=== PATIENT | female | born 1965 | race American Indian/Alaskan Native ===

== ENCOUNTER 2024-03-31 10:14 | Emergency (ER) | payer OTHER, SELFPAY ==
--- NOTE | 2024-03-31 10:18 | W.ED.GENAD ---
Discharge Plan Disposition Patient Disposition: Home Discharge Details Clinical Impression: Acute pain of right knee Primary Care Provider: Unknown,Unknown ED Provider: Morales Mcrae Home Meds and New Rx's Prescriptions: No Action No Known Home Meds Discharge Instructions Additional Instructions: You were seen in the emergency department for your knee pain. Your x-ray showed no sign of any fractures. A referral has been placed for you to have a primary care provider. As we discussed if you develop fevers cannot move your foot or have any increasing pain in your right knee please return to the emergency department. Otherwise please follow-up with your primary care provider in the next week to 10 days. You may or may not benefit from an MRI based on reassessment by your primary care provider. You may use this knee immobilizer and bear weight as tolerated. Please rest your leg today and elevate it. For your pain please take medications as follows: 1. Take acetaminophen (Tylenol), 1,000 mg (two 500 mg tabs) every 6 hours [2. Take ibuprofen (Advil), 400 mg every 6 hours.] Discharge Data Discharge Date/Time-TO BE ENTERED AT DEPARTURE: 03/31/24 11:29 HPI General Date/Time Provider Initiated Documentation: 03/31/24 10:18. HPI Narrative: MDM This is an overall very well-appearing normothermic and not tachycardic 58-year-old female with right knee pain and history and physical most consistent with ligamentous injury for which patient will receive knee immobilizer weightbearing as tolerated with outpatient PCP follow-up. Patient recently relocated to the area and does not have a PCP. I have asked health natural gas treating unit operator to have the patient seen in the next week by her primary care provider. She has a warm well-perfused right lower extremity so I am not concerned for critical limb ischemia so do not feel the patient requires a CT angiogram with runoffs. No fevers nor significant effusion to suggest septic joint so no indication for arthrocentesis. No pain out of proportion to suggest necrotizing soft tissue infection. No erythema to suggest cellulitis. No fluctuance to suggest abscess. Patient is able to straight leg raise so not concern for quadriceps tendon injury. Calf tenderness to suggest Achilles tendon rupture so I did not perform a Caraballo test. In the absence of calf tenderness I was not concerned for DVT. Patient and I discussed that she should return to the ED if she developed worsening pain or any color changes in her foot. She understood her return indications and was discharged with knee immobilizer crutches and PCP follow-up. HPI This is a previously healthy 58-year-old female not on any home medications right in the emergency department via private vehicle in the setting of right knee pain. Patient was reportedly stepping backwards off of a box yesterday evening at approximately 5:30 PM. When she stepped down she had an immediate sense that something was abnormal in her right knee. This is associated with the pain. She has had no surgeries in the past her knee. She never had a PE nor DVT. She denies any fevers numbness and tingling in her foot. She has recently relocated to the area and lives in [place]. She does not yet have a primary care provider. Exam General: Well-appearing in no acute distress speaking in complete sentences. Head: Normocephalic, atraumatic. Eye: Extraocular eye movements intact. No conjunctival injection. No scleral icterus. Ear, nose, mouth, throat: Grossly normal inspection. Normal voice, handling secretions normally. Neck: Trachea midline. Cardiovascular: Well-perfused distal extremities. Respiratory: Nonlabored respiration. Gastrointestinal: Nondistended abdomen. Musculoskeletal: Right lower extremity no obvious signs of trauma. No erythema. No fluctuance. Right foot warm well-perfused 2+ PT and DP pulses. No tenderness throughout right quadriceps. Mild right lateral joint line tenderness on patient's knee. No significant laxity valgus nor varus stress testing. No obvious anterior nor posterior drawer test. Patient is able to straight leg raise. Full range of motion intact in right lower extremity across hip knee and ankle. Skin: Normal for age and race, grossly normal temperature and turgor. No acute rash. Neurologic: Alert and appropriate, no apparent acute deficits. GCS 15. Psychiatric: Mood and manner are appropriate. Grooming and personal hygiene are appropriate. Related Data Home Medications ?Medication ?Instructions ?Recorded ?Confirmed Unknown [No Known Home Meds] 03/31/24 03/31/24 Allergies Allergy/AdvReac Type Severity Reaction Status Date / Time No Known Allergies Allergy Verified 03/31/24 10:22 Medical Decision Making Quality:SDOH Health Related Social Needs: No Data to Display PFSH All Active Problems (Updated 03/31/24 @ 10:53 by Morales Mcrae MD) Acute pain of right knee (Acute) Social History Smoking/Tobacco Use Status: Never Smoking risk assessment performed?: Yes Alcohol Intake: never Drug use: Occasionally Substance use type: marijuana Housing: house Do you feel safe at home: No Do you feel safe in your relationship?: Yes
[2024-03-31 10:20] VITALS: BP 157/94; PULSE 70; RESP 20; TEMP 37; O2SAT 98
--- NOTE | 2024-03-31 10:42 | DI.RAD_ITS ---
Exam(s) XR KNEE RT 3V AP,LAT,JENNY EXAM: XR KNEE RT 3V AP,LAT,JENNY CLINICAL HISTORY: knee pain. TECHNIQUE: 2D digital imaging was performed of the right knee. Four views obtained. AP, lateral and PA tunnel views were obtained. COMPARISON: No exams were available for comparison FINDINGS: BONES: No acute fracture is present. No bony destructive lesion is seen. There are enthesophytes at t he anterior patella. JOINTS: The knee is normally aligned. No joint effusion is seen. SOFT TISSUE: Normal. IMPRESSION: No acute abnormality DATA REPOSITORY: RADIATION DOSE DELIVERED:
[2024-03-31 11:27] VITALS: BP 131/68; PULSE 67; RESP 16; O2SAT 98
--- NOTE | 2024-03-31 11:28 | DI.VRAD_ITS ---
PROCEDURE INFORMATION: Exam: XR Right Knee Exam date and time: 03/31/2024 10:37 AM Age: 58 years old Clinical indication: Pain; Knee; Right TECHNIQUE: Imaging protocol: Radiologic exam of the right knee. Views: 3 views. COMPARISON: No relevant prior studies available. FINDINGS: Bones/joints: No acute or suspicious osseous abnormalities. Small marginal osteophytes in the lateral compartment of the right knee joint, where the joint space is noted to be fairly well maintained. No joint effusion. Moderate bony projection noted at the quadriceps tendon insertion site on the upper pole of the patella. Small bony projection noted at the patellar ligament insertion site on the lower pole of the patella. Soft tissues: Normal. IMPRESSION: 1. No acute findings. 2. Early degenerative changes of the lateral compartment of the right knee. 3. Enthesopathy at the quadriceps tendon insertion site. 4. Enthesopathy at the patellar ligament insertion site on the patella. Dictated and Authenticated by: Kirsten Villanueva MD. Ordering:WOO Nielsen MD
== END 2024-03-31 11:29 | disposition home or self-care (01) ==
PROVIDERS: Emergency Provider Emergency Medicine
DX: M25.561 Pain in right knee (principal)
CPT/HCPCS: 73562; 99283

== ENCOUNTER 2024-07-03 12:51 | Outpatient (REF) | payer OTHER, SELFPAY ==
[2024-07-04 11:07] LABS: Measles IgG Antibody Positive (See Note)
== END 2024-07-03 12:52 | disposition home or self-care (01) ==
LOC: NCHCN 12:51
PROVIDERS: PCP Physician Assistant; Visit Provider Physician Assistant
DX: Z78.9 Other specified health status (principal)
CPT/HCPCS: 86765

== ENCOUNTER 2024-11-02 00:04 | Outpatient (CLI) | payer OTHER, SELFPAY ==
--- NOTE | 2024-11-02 06:45 | DI.MRI_ITS ---
Exam(s) MR LOWER EXTREMITY RT WO MR LOWER JOINT RT WO EXAM: MR LOWER JOINT RT WO CLINICAL HISTORY: right calf pain,[id number] after jumping injury. TECHNIQUE: Multiplanar multisequence MRI was performedof the left knee and left lower leg.. COMPARISON: CR,XR XR KNEE RT 3V AP,LAT,JENNY from 03/31/2024 MR MR LOWER EXTREMITY RT WO from 11/02/2024 FINDINGS: BONES: There is no fracture or contusion pattern. There is an enthesophyte at the quadriceps insertion on the patella. JOINTS: A small to moderate size joint effusion is present. Articular cartilage: Patellofemoral joint: Thinning of the cartilage at the patellar apex extending down to bone at the superior pole. Medial femoral tibial joint: Articular cartilage is unremarkable. Lateral femoral tibial joint: Articular cartilage is unremarkable. LIGAMENTS/TENDONS: Anterior Cruciate: Severe partial to full-thickness tear. Posterior Cruciate: Unremarkable. Medial Collateral:Unremarkable. Lateral Collateral ligament complex: Unremarkable. Extensor mechanism: Unremarkable. Medial retinaculum: Unremarkable. Lateral retinaculum: Unremarkable. Popliteus: Unremarkable. MENISCI: The medial meniscus is unremarkable. The lateral meniscus is unremarkable. MUSCLES: Unremarkable. No evidence of muscle strain in the lower leg. SOFT TISSUES: Minimal Greenfield's cyst. Mild anterior soft tissue edema. IMPRESSION: Severe partial to full-thickness tear of the anterior cruciate ligament. small to moderate-sized joint effusion. Chondromalacia at the patellar apex. Small Greenfield's cyst.. No abnormality seen in the lower leg. DATA REPOSITORY:
== END 2024-11-02 00:24 ==
LOC: DI 00:05
PROVIDERS: PCP Nurse Practitioner Family; Visit Provider Nurse Practitioner Family
DX: S83.511A Sprain of anterior cruciate ligament of right knee, initial encounter (principal); X58.XXXA Exposure to other specified factors, initial encounter
CPT/HCPCS: 73721; 73718

== ENCOUNTER 2024-11-12 17:01 | Outpatient (CLI) | payer OTHER, SELFPAY ==
[2024-11-12 17:11] LABS: HCT 41.1 % (36.0-46.0); HGB 13.5 g/dL (11.2-15.7); MCH 28.6 pg (27.0-33.0); MCHC 32.8 % (32.0-36.0); MCV 87 fL (80-95); MPV 11.7 fL (8.0-11.0); Platelet Count 238 10^3/uL (130-400); RBC 4.72 10^6/uL (3.93-5.22); RDW 11.9 % (11.7-14.6); RDW-SD 38.4 fL; WBC 8.58 10^3/uL (4.4-10.8)
[2024-11-12 17:31] LABS: Hemoglobin A1C 5.8 % (<5.7)
[2024-11-12 18:11] LABS: Iron 49 ug/dL (50-170); Total Iron Binding Capacity 275 ug/dL (250-450); Transferrin Sat 18 % (15-50)
[2024-11-12 18:34] LABS: ALT 26 U/L (14-59); AST 19 U/L (15-37); Albumin 4.1 g/dL (3.4-5.0); Alkaline Phosphatase 87 U/L (46-116); Anion Gap 8.2 mmol/L (3-11); BUN 18 mg/dL (7-18); Bilirubin, Total 0.5 mg/dL (0.2-1.0); CO2 29.8 mmol/L (21.0-32.0); Calcium 8.8 mg/dL (8.5-10.1); Chloride 104 mmol/L (98-107); Cholesterol 186 mg/dL (<200); Estimated GFR 85.35 (mL/min/1.73m2); Ferritin 71 ng/mL (8-252); Glucose 119 mg/dL (74-106); HDL Cholesterol 35 mg/dL (>or=50); Potassium 4.1 mmol/L (3.5-5.1); Sodium 142 mmol/L (136-145); TSH (W/Ref FT4) 2.07 uIU/mL (0.36-3.74); Total Protein 7.1 g/dL (6.4-8.2); Triglyceride 434 mg/dL (<150); Vitamin D 25 Total 47 ng/mL (30-100)
[2024-11-12 19:41] LABS: LDL CHOLESTEROL 102 mg/dL (<100)
== END 2024-11-12 17:02 | disposition home or self-care (01) ==
LOC: LBO 17:02
PROVIDERS: PCP Nurse Practitioner Family; Visit Provider Obstetrics & Gynecology
DX: R61 Generalized hyperhidrosis (principal); G47.00 Insomnia, unspecified; R53.83 Other fatigue; Z3A.28 28 weeks gestation of pregnancy; N93.9 Abnormal uterine and vaginal bleeding, unspecified; Z13.6 Encounter for screening for cardiovascular disorders; R23.2 Flushing; Z00.00 Encounter for general adult medical examination without abnormal findings
CPT/HCPCS: 36415; 80053; 80061; 82306; 83721; 85027; 82728; 83036; 83540; 83550; 84443

== ENCOUNTER 2024-12-18 10:17 | Outpatient (REF) | payer OTHER, SELFPAY | END 2024-12-18 10:18 | disposition home or self-care (01) | LOC: LBN 10:17 | PROVIDERS: PCP Nurse Practitioner Family; Visit Provider Obstetrics & Gynecology | DX: Z12.4 Encounter for screening for malignant neoplasm of cervix (principal) | CPT/HCPCS: 88142; 87624 ==

== ENCOUNTER 2024-12-28 07:45 | Day surgery (SDC) | payer OTHER, SELFPAY ==
[2024-12-28] VITALS (19 sets, daily range): BP systolic 100–139; BP diastolic 56–86; PULSE 49–70; RESP 11–19; TEMP 36.1–36.6; O2SAT 96–100; BMI 27.8
--- NOTE | 2024-12-28 07:13 | W.PM.DSUDISC ---
Date of service: 12/28/24 Discharge Plan Disposition Patient Disposition: Home Condition: Stable Discharge Details Attending Provider: Ace Wilkes Primary Care Provider: Radha Rojas Home Meds and New Rx's Prescriptions: New aspirin 81 mg tablet,delayed release (DR/EC) 81 mg PO DAILY 14 Days Qty: 14 0RF naproxen 250 mg tablet 250 - 500 mg PO BID PRN (Reason: Moderate pain) Qty: 40 0RF oxycodone 5 mg tablet 5 - 10 mg PO Q4H PRN (Reason: Moderate to severe pain) Qty: 18 0RF Continued zolpidem 5 mg tablet 5 mg PO QHS PRN (Reason: insomnia) valacyclovir 1 gram tablet 1,000 mg PO DAILY PRN (Reason: cold sores) albuterol sulfate 90 mcg/actuation HFA aerosol inhaler 2 puff inhalation Q6H PRN cholecalciferol (vitamin D3) 125 mcg (5,000 unit) capsule 125 mcg PO DAILY mecobalamin (vitamin B12) 1,000 mcg tablet,chewable 1,000 mcg PO DAILY quercetin 500 mg capsule PO thiamine HCl (vitamin B1) 100 mg capsule 100 mg PO DAILY Trace Mineral PO vitamin b5 500 mg PO paroxetine mesylate(menop.sym) 7.5 mg capsule 7.5 mg PO DAILY 30 Days Qty: 30 1RF Patient Comments: haven't started Discharge Instructions Additional Instructions: Surgery: Right knee arthroscopy with ACL reconstruction (quadriceps allograft), patellar chondroplasty, and partial medial & lateral meniscectomy 12/28/24 Activity: Weightbearing as tolerated. No brace or crutches needed as soon as comfortable and stable on knee. Restore full knee extension as soon as possible. Perform early quad sets/quadriceps isometrics. Gradually increase flexion to full. Recommend elevation to minimize swelling discomfort. Encourage ankle pumps and wiggle toes to improve circulation. A physical therapy prescription will be sent electronically to begin in 3 weeks. Avoid sports activities for about 9+ months. Prescriptions: Aspirin 81 mg take 1 daily to prevent a blood clot for 14 days Naproxen 250 mg take 1-2 every 12 hours with a meal as needed for moderate pain Oxycodone 5 mg take 1-2 every 4-6 hours as needed for severe pain You may use [id number] Tylenol (acetaminophen) as needed for mild pain. These pain medications may be taken all at once or in different combinations as needed. Also, recommend Colace (docusate) as a stool softener as surgery and pain medicine cause constipation. You may try [id number] diphenhydramine (Benadryl) 25-50 mg nightly as a sleep aid Dressings: Leave dressing in place for 3 days. May then remove and leave open to air or cover incisions with Band-Aids. Leave the sticky Steri-Strips in place until they fall off or remove them after you shower. May shower after 5 days. Follow-up: 10-[address] Wilkes You may take off the leg compression stockings this evening at home. You may also leave them on a few days longer if you have a history of leg swelling or edema. Let us know right away if you develop any redness, drainage, fevers, chest pain, or trouble breathing. Do not drink alcohol or drive for at least 24 hours after anesthesia. Please call the office during business hours with any questions or concerns. Stand Alone Forms: Anesthesia Discharge Inst., Anes.Nerve Block Instructions, Crutch Training Instructions, Kenia Baker (DSU) Referrals: Ace Wilkes MD [ [facility] STAFF PHYSICIAN, Orthopaedic Surgical] - 01/08/25 9:00 am Discharge Orders Discharge Orders: Discharge Order (Routine); Ordered 12/28/24 Ordered By: Jay Villalba DS: Diagnosis Discharge Diagnosis (1) Chondromalacia of patella, right: Status: Acute (2) Right ACL tear: Status: Acute (3) Degeneration of meniscus of right knee: Status: Acute
--- NOTE | 2024-12-28 07:26 | ROE_ITS ---
Operative Note Operative Note PRE-OP DIAGNOSIS: Right knee: 1. Subacute ACL rupture PROCEDURE: Right knee: 1. ACL reconstruction, CPT #06019: Quadriceps allograft 2. Partial medial & lateral meniscectomy, CPT #04451 3. Patellar chondroplasty, CPT #43519 SURGEON: Ace Wilkes DENTAL INSTRUMENT MAKER: Jay Villalba ANESTHESIA TYPE: Local By Surgeon, General LMA/ETT and Primary Nerve Block Refer to Anesthesia Record ESTIMATED BLOOD LOSS: 10 TOURNIQUET TIME: 0 COMPLICATIONS: None Patient was transported to: PACU Patient's condition: stable Implants: Arthrex ACL TightRope II RT and ABS with 11 mm round concave cortical button QuadLink pre-sutured quadriceps allograft: 10 x68 mm Indications: Please see complete medical record for details. Findings: Exam under anesthesia: Full range of motion, grossly positive Richardson, positive pivot glide, equivocal anterior drawer, stable varus and valgus. Negative posterior drawer. Arthroscopic findings: Moderate patellofemoral synovitis and undersurface patellar apex chondromalacia. Mild white zone degenerative medial meniscus body and posterior horn tearing. Similarly degenerative posterior horn lateral meniscus tearing. Both menisci had some fraying approaching the root but the roots were overall stable. Moderate medial compartment narrowing. Moderate to high grade mid to higher grade proximal ACL disruption with some intact mid to distal fibers scarred to the PCL as well. Moderate medial chondromalacia. Intact lateral compartment. Procedure Description: In the operating room, general anesthesia was induced. The patient was positioned supine on the operating room table. All bony prominences were well- padded. Preoperative antibiotics were administered. The knee was prepped and draped in the usual sterile fashion. The correct patient, procedure, and side of the procedure were all verified prior to incision. Exam under anesthesia was performed. Local anesthetic containing epinephrine was infiltrated about the planned anteromedial, anterolateral, lateral distal femoral, and pretibial surgery sites. The standard high and tight anterolateral and anteromedial portals were established and a complete diagnostic arthroscopy was performed with relevant findings detailed above. A passport cannula was i nserted in both the anteromedial and anterolateral portals. The shaver was used to remove abundant synovium engaging in the patellofemoral compartment followed by the torpedo shaver to trim and smoothed the some irregular unstable cartilage of the undersurface of the patella. The torpedo shaver was then used in both the medial and lateral compartments to trim the irregular meniscus tearing white zone edge of tearing and fraying to a more appropriate stable margin including the body posterior horn and nearing the root. In the intercondylar area, the ACL remnant was removed leaving enough dieter tprint on the femur and tibia to localize anatomic socket placement. A small notchplasty was performed to allow proper visualization of the back wall. The graft was measured and prepared on the back table. The TightRope II BTB and TightRope II ABS adjustable-loop cortical suspensory fixation implants were loaded on QuadLink pre-sutured quadriceps allograft. The femoral side measured 10 mm and the tibial side 9.5 mm.. The graft was marked at 20 mm from each end. On the ABS side, the tensioning sutures were marked and a shuttle suture was added. The graft was manually tensioned and the construct did not demonstrate any elongation. The graft was then compressed in a graft tube and covered with vancomycin soaked sponges. The femoral guide was then placed through the anterolateral portal carefully targeting the appropriate anatomic ACL origin. The outer 9 mm diameter of the guide was positioned anatomically with appropriate space between the proximal and posterior articular margins. On the lateral thigh, drill guide position and angle adjusted to about 60 degree angle to the longitudinal axis of the femur in the coronal plane and 20 degree angle to the trans-epicondylar axis in the axial plane to create the most optimal femoral socket. Knife and snap were used to open the skin and IT band and placed the drill guide on bone while maintaining appropriate position on the lateral wall. The tunnel length was noted to be used for marking and passing the femoral button. The flip cutter was then drilled to the appropriate location. The drill guide malleted 7 mm into the co rtex. The remainder of the targeting guide removed. The FlipCutter was deployed to 9.5 mm and retrograde reaming done to a depth of almost 30 mm. Bony debris was removed with the shaver. The flip cutter was then closed, withdrawn, and a FiberSnare used to pass a #2 FiberWire shuttle stitch, which was withdrawn out the anterolateral portal. The tibial guide was then used to target the anatomic ACL insertion through the anteromedial portal. The drill angle adjusted to 57.5 degrees and a pretibial incision made. The drill guide was placed on bone, tunnel length noted, and the flip cutter drilled to the appropriate location. The drill guide malleted 7 mm into the cortex. The remainder of the targeting guide removed. The FlipCutter was deployed to 10mm and retrograde reaming done to a depth of 35+ millimeter. Bony debris was removed with the shaver. The flip cutter was then closed, withdrawn, and a FiberSnare used to pass a #2 FiberWire shuttle stitch, which was withdrawn out the anteromedial portal. The mechanical shaver was used to remove bone debris as well as chamfer and remove soft tissue from the edges of the sockets. A femoral shuttle sutures were withdrawn out the anterior medial portal. The PassPort was removed. This portal dilated to accommodate the graft size. The graft was brought over to the knee and the femoral sutures shuttled out the lateral thigh and advanced until the button was near the far cortex. Under arthroscopic visualization with the knee slightly hyperflexed, and the button was then passed and flipped on the far cortex. Counter traction was then maintained on the tibial side of the graft while it was carefully advanced into the knee and then about 15 mm into the femoral socket. The tibial sutures were then shuttled through the tibial tunnel and passing stitch removed while carefully noting the tensioning stitches. The graft was then dunked about 15 mm into the tibial socket. 11 mm round concave ABS button was then loaded to the ABS loop and tension sutures used to bring the cortical button down to bone. The graft was advanced and then provisionally tensioned on both the femoral and tibial sides. The knee was then cycled 22 times, tensioning rechecked, and final tightening done with the knee in full extension with a moderate reverse Richardson maintained. The graft position and tension were appropriate. There was no impingement in full extension. Richardson exam was rock stable. Femoral passing sutures were removed. Backup knots were then tied on both sides and suture tails cut. The knee and all portals were copiously irrigated and then knee drained of arthroscopic fluid. 3-0 Monocryl was used to close the portals and small incisions in a buried interrupted fashion. Mastisol, Steri-Strips, Xeroform, 4 x 4 gauze, and sterile soft roll was applied. The extremity was wrapped gently with an Nathaniel bandage. A soft knee immobilizer placed. The patient awoke from anesthesia without complication and was transferred to the recovery room in a stable condition. Date of Procedure: 12/28/24
--- NOTE | 2024-12-28 08:29 | W.ANESPRE ---
General Info Date of Service Date Performed: 12/28/24 Height: 5 ft 5 in Weight: 75.8 kg Body Mass Index (BMI): 27.8 Surgical Procedure: Operation Date: 12/28/24 10:10 Proposed Procedure Side Surgeon p Knee ACL Reconstruction (Quadriceps Allograft) Right Ace Wilkes MD Actual Procedure Side Surgeon p Knee ACL Reconstruction (Quadriceps Allograft) Right Ace Wilkes MD Pre-Op Diagnosis Post-Op Diagnosis Right ACL tear Meds Allergies and Home Medications Allergies Allergy/AdvReac Type Severity Reaction Status Date / Time No Known Allergies Allergy Verified 12/28/24 08:23 Home Medication ?Medication ?Instructions ?Recorded Trace Mineral PO 10/09/24 albuterol sulfate 90 mcg/actuation 2 puff inhalation Q6H PRN 10/09/24 aerosol inhaler cholecalciferol (vitamin D3) 125 125 mcg PO DAILY 10/09/24 mcg (5,000 unit) capsule mecobalamin (vitamin B12) 1,000 1,000 mcg PO DAILY 10/09/24 mcg chewable tablet quercetin 500 mg capsule mg PO 10/09/24 thiamine HCl (vitamin B1) 100 mg 100 mg PO DAILY 10/09/24 capsule valacyclovir 1 gram tablet 1,000 mg PO DAILY PRN cold sores 10/09/24 vitamin b5 PO 10/09/24 zolpidem 5 mg tablet 5 mg PO QHS PRN insomnia 10/09/24 paroxetine mesylate(menop.sym) 7.5 7.5 mg PO DAILY 30 days #30 caps 12/18/24 mg capsule Current Visit Medications: Current Medications Generic Name Dose Route Start Last Admin Trade Name Danielle PRN Reason Stop Dose Admin Ringer's Solution 1,000 mls @ 30 mls/hr 12/28/24 06:00 IV 12/28/24 23:59 INFUSION CATE Cefazolin Sodium/Dextrose 2 gm in 50 mls @ 100 mls/hr 12/28/24 06:00 Ancef Duplex IVPB 12/28/24 23:59 PREOP CATE Tranexamic Acid/Sodium Chloride 1,000 mg in 100 mls @ 600 mls/hr 12/28/24 06:00 IVPB 12/28/24 23:59 PREOP CATE IV Miscellaneous Supplies 1 each 12/28/24 06:00 Iv Access IV 12/28/24 23:59 DIRECTED CATE Oxycodone HCl 0 mg 12/28/24 07:12 Oxycodone 5 Mg Tab PO 01/27/25 07:11 Q3H PRN PRN Pain Sodium Chloride 0 ml 12/28/24 06:00 Normal Saline Flush 10 Ml Syr IV 12/28/24 23:59 PRN PRN Sodium Chloride 0 ml 12/28/24 06:00 Normal Saline 10 Ml Vial IJ 12/28/24 23:59 DIRECTED PRN Sterile Water 0 ml 12/28/24 06:00 Water,Injection,Sterile 10 Ml Vial IJ 12/28/24 23:59 DIRECTED PRN PFSH Active Problems Active Problems: Problem Status Onset Code Menopause Acute Z78.0 Prediabetes Acute R73.03 Neuritis of left sural nerve Acute G57.82 Neuritis of left foot Acute G57.92 Contracture of left Achilles tendon Acute M67.02 Pain in left foot Acute M79.672 Interdigital neuroma of left foot Acute G57.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 of patella, right Acute M22.41 Right ACL tear Acute ~03/2024 S83.511A Preventative health care Acute Z00.00 Hot flashes Acute R23.2 Hamstring tendonitis Acute M76.899 Right calf pain Acute M79.661 Exercise-induced asthma Acute J45.990 Insomnia Acute G47.00 Medical History Medical History Hypothyroidism Right knee pain Elevated blood pressure reading without diagnosis of hypertension Low back pain Surgical History Surgical History History of cholecystectomy (2022) Tobacco Smoking/Tobacco Use Status: Never Alcohol Alcohol Intake: never Substance Use Substance use: Occasionally Substance use type: marijuana Details: THC used a few times a week. edibles for sleep. small edible in last 24 hours. Vital Signs and Lab Results Vital Signs Most Recent Vital Signs in EMR: Most Recent Vital Signs Temp Pulse Resp BP Pulse Ox 36.4 C L 62 16 137/73 100 12/28/24 08:19 12/28/24 08:19 12/28/24 08:19 12/28/24 08:19 12/28/24 08:19 Anesthesia Assessment and Plan Anesthesia History Personal History: No History of Anesthesia Complications Family History: No Family History of Anesthesia Complications Exercise Tolerance Exercise Tolerance: Metabolic Equivalents>4 Pertinent Negatives Pertinent Negatives: No Symptoms of GERD Cardiac & Pulmonary Exam Cardiac Exam: Normal S1/S2 Heart Sounds Pulmonary Exam: Clear Bilateral Breath Sounds Implantable Cardiac Device Does patient have a Pacemaker or an ICD?: No Airway Exam Known Difficult Airway: No Mallampati Class: 1 Mouth Opening: Normal (> 3cm) Thyromental Distance: Greater than 3 cm Neck Range of Motion: Full ROM Neck Circumference: Normal Teeth Condition: Normal Dentition ASA Classification ASA Score: ASA 2 Emergency Case?: No NPO Status NPO Status: NPO Clears >2 hours, Solids >8 hours Anesthesia Plan Resuscitation Status: Full Code Anesthesia Technique: General Anesthesia Airway Planned: Endotracheal Tube Pain Management: Surgeon and patient request nerve block Monitors Used: Standard Monitors
[2024-12-28] MEDS: Lactated Ringers 1,000 ML 30 ML IV (09:04)
[2024-12-28] MEDS: ceFAZolin 2 GM/50 ML BAG IVPB (11:13)
[2024-12-28] MEDS: TRANEXAMIC ACID/SOD. CHL. 1,000 MG/100 ML BAG 600 MG IVPB (11:15)
--- NOTE | 2024-12-28 11:39 | W.ANESNERVE ---
Nerve Block Single Injection Procedure Date and Time Date Performed: 12/28/24 Procedure Start: 10:55 Location Where Procedure Performed Procedure Location: Day Surgery Unit Reason Performed: Postoperative Analgesia Requesting Provider: Ace Wilkes Timeout Performed Timeout Performed: Yes Monitoring Used ECG, Blood Pressure, SpO2 and See EMR for corresponding vital signs Sterility Sterility: Hand Hygiene, Surgical Cap, Surgical Mask, Sterile Gloves and Chlorhexidine Sedation Given During Procedure Sedation Given (Indicate Dose Given): Versed IV Dose:: 2mg Patient Mental Status Patient Mental Status: Sedate with meaningful communication Nerve Block 1st Nerve Block: Laterality: Right Block Type: Adductor Canal (High adductor) Ultrasound Image Saved?: Yes Needle / Catheter Used: 100mm SonoPlex II Local Anesthetic Bolus (Indicate Dose Given): Lidocaine used for local infiltration of skin, Injected in 3-5ml increments after negative blood aspiration, Bupivacaine 0.25% Dose:: 10ml and Exparel Dose:: 10ml Additives (Indicate Dose Given): None Ultrasound: Sterile probe cover and gel used Nerve Stimulator: Supplement to Ultrasound use and No twitch or parasthesia noted < 0.5 mA Paresthesia: None Procedure Tolerated: No Complications and Patient tolerated well Procedure Outcome: Successful Performed By: Jose Luis Beard
[2024-12-28] MEDS: Bupivacaine 0.25% Pres-Free W/EPI 30 ML VIAL (11:45)
[2024-12-28] MEDS: Vancomycin 1,000 MG VIAL 1000 MG (11:46)
[2024-12-28] MEDS: EPINEPHrine 10 MG/10 ML ML (12:04)
--- NOTE | 2024-12-28 14:51 | W.ANESPOSTOP ---
Postoperative Evaluation Date, Time and Location Date Performed: 12/28/24 Time Performed: 14:51 Patient Location: Day Surgery Unit Vital Signs Most Recent Imported Vital Signs: Most Recent Vital Signs Temp Pulse Resp BP Pulse Ox 36.1 C L 49 L 16 122/56 L 100 12/28/24 14:07 12/28/24 14:07 12/28/24 14:07 12/28/24 14:07 12/28/24 14:07 Pain Score Most Recent Pain Score: Most Recent Pain Score Pain Level 3 12/28/24 14:07 Assessment Mental Status: Awake (Alert & Oriented to Patient Baseline) Airway and Respiratory Function: Patent airway with normal (patient baseline) respiratory exam Cardiovascular Function: Hemodynamically Stable Hydration Status: Adequately Hydrated Nausea & Vomiting: No Nausea or Vomiting Pain: Pain is tolerable per patient Peripheral Nerve Block: Regional nerve block not resolved at time of post operative discharge
--- NOTE | 2024-12-28 15:40 | PT.INIE ---
PT Notes Physical Therapy Day Surgery Initial Evaluation Date: 12/28/24 Referring Doctor: Dr. Wilkes PT Orders: PT CONSULT: crutch training Precautions: WBAT RLE Patient Profile/Admitting Diagnosis: Georgina is a 59 year old female with referral for PT evaluation and treatment in Day Surgery Unit following right knee arthroscopy with ACL reconstruction (quadriceps allograft), patellar chondroplasty, and partial medial & lateral meniscectomy 12/28/24. Social History/Home Situation: Lives in a private home with 2STE. Equipment Owned/DME: none Subjective: Georgina states that she is feeling well post-operatively. [place] a little wobbly on crutches. Objective: General Observation: Resting in chair with IV in RUE, knee immobilizer to RLE. Mental Status: A&Ox3 Pain: well managed ROM: Right Upper Extremity: WFL Left Upper Extremity: WFL Right Lower Extremity: knee secured in immobilizer. Demonstrates active ankle DF/PF. Left Lower Extremity: WFL Strength: Right Upper Extremity: grossly 5/5 Left Upper Extremity: grossly 5/5 Right Lower Extremity: Demonstrates good quad setting. Ankle DF 3/5 or greater Left Lower Extremity: WFL Bed Mobility/Transfers: Sit to stand : CGA intially, with need for cues for technique and equipment management Stand to sit :CGA intially, with need for cues for technique and equipment management. Demonstrates a poorly controlled descent on first attempt, improving with cues and repetition Gait: Initially requiring min A and demonstrating step to pattern with limited WBing to RLE. With education and gait training, demonstrates good step through technique with WBAT. Balance: Static Sitting: normal Dynamic Sitting: good Static Standing: fair Dynamic Standing: fair Informed Consent/Education: Patient instructed in purpose of PT consult. Packet containing [] exercise protocol has been given to patient. Education and training on initial set of exercises that can be done at home have been completed with patient. Treatment: Initial evaluation ([id number]) Performed gait training, with instruction in use of bilateral axillary crutches with step through pattern. Instructed in stair management with use of bilateral rails 6 inches x 2 with SBA. Instructed in equipment management for sit?stand transfers. Assessment: Patient presents with clinical signs and symptoms consistent with current/admitting diagnoses that have resulted to mobility limitations, gait instability, generalized weakness, and impairment of motor control as demonstrated by the following impairment level findings: 1. Decreased strength to right knee major muscle groups 2. Impaired standing balance 3. Limitation of joint range of motion in right knee Impairments are contributing to the following functional limitations: 1. Inability to safely ambulate without assistive device 2. Increase completion time for mobility ADL performance 3. Increased fall risk Patient is assessed as low complexity based on the following: History: As above. No significant complicating factors Examination: Demonstrable impairment in strength, balance, and mobility level with underlying impairments and functional limitations as documented above Presentation: Stable Decision Making: Low Goals: N/A. PT evaluation and 1-2 treatment sessions only for functional mobility training using recommended AD and for HEP instruction. Plan of Care/Treatment Plan: N/A. PT evaluation and 1-2 treatment session only for functional mobility training using recommended AD and for HEP instruction. DISCHARGE RECOMMENDATIONS: Home with outpatient PT as recommended by Ortho TREATMENT CODE/TIME: [id number] ([id number]) Thank you for the opportunity to participate in the care of this patient. 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) Menopause (Acute) Prediabetes (Acute) Neuritis of left sural nerve (Acute) Neuritis of left foot (Acute) Contracture of left Achilles tendon (Acute) Pain in left foot (Acute) Interdigital neuroma of left foot (Acute) Chondromalacia of patella, right (Acute) Right ACL tear (Acute ~03/2024) Preventative health care (Acute) Hot flashes (Acute) Hamstring tendonitis (Acute) Right calf pain (Acute) Exercise-induced asthma (Acute) Insomnia (Acute) Medical History (Updated 12/28/24 @ 15:40 by Ace Wilkes MD) Hypothyroidism Right knee pain Elevated blood pressure reading without diagnosis of hypertension Low back pain Surgical History History of cholecystectomy (2022)
== END 2024-12-28 16:06 | disposition home or self-care (01) ==
LOC: SUR 07:46
PROVIDERS: PCP Nurse Practitioner Family; Visit Provider Student in an Organized Health Care Education/Training Program
PROC: (CPT 29888; principal; 2024-12-28 10:00)
DX: S83.511A Sprain of anterior cruciate ligament of right knee, initial encounter (principal); M22.41 Chondromalacia patellae, right knee; M23.303 Other meniscus derangements, unspecified medial meniscus, right knee; M23.300 Other meniscus derangements, unspecified lateral meniscus, right knee; X58.XXXA Exposure to other specified factors, initial encounter; G89.18 Other acute postprocedural pain
CPT/HCPCS: 29889; 29880; 64447; 97161; J0665; J0666; J0690; J1100; J1885; J2250; J2405; J2704; J3373

== ENCOUNTER 2025-01-29 00:06 | Outpatient (CLI) | payer OTHER, SELFPAY ==
[2025-01-29 12:50] LABS: Triglyceride 139 mg/dL (<150)
== END 2025-01-29 00:07 | disposition home or self-care (01) ==
LOC: LBO 00:06
PROVIDERS: PCP Nurse Practitioner Family; Visit Provider Nurse Practitioner Family
DX: R89.9 Unspecified abnormal finding in specimens from other organs, systems and tissues (principal)
CPT/HCPCS: 36415; 84478

== ENCOUNTER → 2025-02-01 03:06 | Outpatient (CLI) | payer OTHER, SELFPAY ==
--- NOTE | 2025-02-01 08:26 | DI.MAMMO_ITS ---
Exam(s) MAMMO SCREENING EXAM: MAMMO SCREENING CLINICAL HISTORY: screening,Z12.39 TECHNIQUE: Bilateral full field digital CC and MLO mammographic images were obtained with 3D tomosynthesis and utilizing computer aided detection (CAD). COMPARISON: There are no priors for comparison. FINDINGS: Masses/Architectural Distortion: No suspicious masses or areas of architectural distortion are present. Microcalcifications: No suspicious pleomorphic-type are seen. Skin Thickening/Nipple Retraction: None. IMPRESSION: 1. There is no evidence for malignancy at this time. 2. Unless there is more urgent need, screening mammography is recommended, as per [place] guidelines. BI-RADS Category 1 - Negative Breast Density - Category A - The breast are almost entirely fatty. Breast density Category C or D implies that the patient has dense breast tissue. Dense breast tissue can make it harder to find cancer on a mammogram. Dense breast tissue is also associated with an increased risk of breast cancer. This information about the result of the mammogram report was provided to the patient to raise their awareness. Use this report when you speak with the patient about their risks for breast cancer, which includes their family history. At that time, you may recommend additional screening tests (Ultrasound or MRI) as these tests may add significant information. A negative radiographic report should not delay biopsy if a dominant or clinically suspicious mass is present. Up to ten percent of cancers are not identified on mammography. A negative report may reinforce clinical impression. Adenosis and dense breasts may obscure an underlying neoplasm. False positive reports average 6 to 10%. Patient will receive a letter notifying them of these results.
== END ==
LOC: DI 03:06
PROVIDERS: PCP Nurse Practitioner Family; Visit Provider Obstetrics & Gynecology
DX: Z12.31 Encounter for screening mammogram for malignant neoplasm of breast (principal)
CPT/HCPCS: 77063; 77067